=== PATIENT | female | born 1995 | race Caucasian/White ===

== ENCOUNTER 2018-07-10 10:11 | Inpatient (IN) | payer OTHER ==
[2018-07-15] MEDS: LACTATED RINGERS 1,000 ML IV SCH ×2 (06:18→11:02)
[2018-07-15] MEDS ORDERED: LIDOCAINE 1% (PF) 10 MG/ML (30 ML SDV) SQ PRN (06:22)
[2018-07-15] MEDS ORDERED: METHYLERGONOVINE 0.2 MG/ML 1 ML AMP IM PRN (06:22)
[2018-07-15] MEDS ORDERED: CARBOPROST TROMETHAMINE 250 MCG/ML 1 ML AMP IM PRN (06:22)
[2018-07-15] MEDS ORDERED: TERBUTALINE 1 MG/ML VIAL SQ PRN (06:22)
[2018-07-15] MEDS ORDERED: OXYTOCIN 10 UNIT/ML 1 ML VIAL IM PRN (06:22)
[2018-07-15 06:30] VITALS: BMI 30.4
[2018-07-15] MEDS ORDERED: OXYTOCIN 20 UNITS/1000 ML NS 1,000 ML IV SCH (06:30)
[2018-07-15] MEDS ORDERED: LACTATED RINGERS 1,000 ML IV SCH (06:30)
[2018-07-15 06:41] LABS: Basophils % (A) 0 %; Eosinophils # (A) 0.2 k/uL (0-0.7); Eosinophils % (A) 2 %; HCT 38.5 % (34.0-46.0); HGB 12.3 gm/dL (11.4-16.0); Lymphocytes # (A) 2.2 k/uL (1.0-4.8); Lymphocytes % (A) 20 %; MCH 30.1 pg (25.0-35.0); MCHC 31.9 g/dL (31.0-37.0); MCV 94.2 fL (80.0-100.0); Mean Platelet Volume 7.4; Monocytes # (A) 0.8 k/uL (0-1.0); Monocytes % (A) 8 %; Neutrophils # (A) 7.4 k/uL (1.3-7.7); Neutrophils % (A) 68 %; Platelet Count 156 k/uL (150-450); RBC 4.09 m/uL (3.80-5.40); RDW 12.7 % (11.5-15.5); WBC 10.8 k/uL (3.8-10.6)
--- NOTE | 2018-07-15 07:22 | P.HPOB ---
History of Present Illness H&P Date: 07/15/18 This is a 23-year-old white female 2 para 1001 EDC 07/10/2018 at 40-5/7 weeks' gestation. Patient presents today for induction for postdates with favorable cervix. Fetus is active, she denies vaginal bleeding or fluid leakage. Past medical history is significant for depression and ADHD. Past surgical history significant for primary for suspected macrosomia in 2014, lymph node removal of the right breast 3, benign pathology. Current medications vitamins daily. ALLERGIES morphine to which reports a nonspecific "intolerance". Family history is unremarkable. Social history patient is a former smoker, she is , she works locally, she denies social drug use or any alcohol use. Obstetric history is significant for blood type B positive, rubella status immune. VDRL testing, urine culture, hepatitis B surface antigen, HIV testing, gonorrhea and chlamydia cultures, group B strep cultures all negative. One- hour Glucola 74. On exam this is a pleasant white female, 5 foot 1 inch, 161 pounds, blood pressure 121/74, patient is afebrile. The general physical exam is within normal limits. The chest is clear in all [place]. Extremities reveal no edema. Cervix is 3 cm dilated, 70% effaced, -2 station, vertex presentation. Artificial amniorrhexis reveals meconium-stained fluid. heart rate is consistent with reactive NST. Impression: 40-5/7 weeks intrauterine , planning . Meconium- stained fluid. Favorable cervix. Plan: Continue oxytocin per hospital protocol. Continue close maternal and surveillance. Analgesic options are reviewed with the patient. Anticipating vaginal after . Review of Systems Constitutional: Reports as per HPI Past Medical History Past Medical History: No Reported History Additional Past Medical History / Comment(s): depression, ADHD History of Any Multi-Drug Resistant Organisms: None Reported Past Surgical History: Section Additional Past Surgical History / Comment(s): removal of 3 lymphangiomas Past Anesthesia/Blood Transfusion Reactions: Motion Sickness Past Psychological History: ADD/ADHD, Anxiety Smoking Status: Former smoker Past Alcohol Use History: None Reported Past Drug Use History: None Reported - Past Family History Mother Family Medical History: No Reported History Medications and Allergies Home Medications Medication Instructions Recorded Confirmed Type Pnv with Ca,No.72/Iron/FA 1 each PO DAILY 12/22/14 07/15/18 History [ Plus Multivitamin Tab] Allergies Allergy/AdvReac Type Severity Reaction Status Date / Time No Known Allergies Allergy Verified 07/15/18 06:23 Exam Vital Signs Temp Pulse Resp BP 07/15/18 06:24 96.5 F L 76 16 121/74 Intake and Output 07/14/18 07/15/18 07/15/18 22:59 06:59 14:59 Other: Weight 73.028 kg see dictation under HPI, please Results Result Diagrams: 07/15/18 06:18 Abnormal Lab Results - Last 24 Hours (Table) 07/15/18 Range/Units 06:18 WBC 10.8 H (3.8-10.6) k/uL Assessment and Plan Assessment: 40-5/7 weeks intrauterine , previous section planning , meconium-stained fluid. Plan: Oxytocin per hospital protocol. Close maternal and surveillance. Anticipating vaginal after . Time with Patient: Less than 30
[2018-07-15] MEDS ORDERED: ROPIVACAINE 100 MG, fentaNYL (PF) 200 MCG in SODIUM CHLORIDE 0.9% 76 ML EPIDURAL ONE (12:26)
[2018-07-15] MEDS ORDERED: ZOLPIDEM 5 MG TAB PO PRN (13:26)
[2018-07-15] MEDS ORDERED: HYDROCORTISONE 2.5% RECTAL CREAM 30 GM TUBE RECTAL PRN (13:26)
[2018-07-15] MEDS ORDERED: diphenhydrAMINE 25 MG CAP PO PRN (13:26)
[2018-07-15] MEDS ORDERED: IBUPROFEN 600 MG TAB PO PRN (13:26)
[2018-07-15] MEDS ORDERED: LANOLIN CREAM 5 GM TUBE TOPICAL PRN (13:26)
[2018-07-15] MEDS ORDERED: SIMETHICONE 80 MG CHEWABLE PO PRN (13:26)
[2018-07-15] MEDS ORDERED: diphenhydrAMINE ELIXIR 25 MG/10 ML CUP PO PRN (13:26)
[2018-07-15] MEDS ORDERED: HYDROcodone/APAP 5-325MG 1 EACH TAB PO PRN (13:26)
[2018-07-15] MEDS ORDERED: BISACODYL 10 MG SUPP RECTAL PRN (13:26)
[2018-07-15] MEDS ORDERED: diphenhydrAMINE 50 MG/ML 1 ML VIAL IVP PRN ×2 (13:26)
[2018-07-15] MEDS ORDERED: diphenhydrAMINE 50 MG CAP PO PRN (13:26)
[2018-07-15] MEDS ORDERED: WITCH HAZEL 1 EACH MED..PAD TOPICAL PRN (13:26)
[2018-07-15] MEDS ORDERED: BENZOCAINE/MENTHOL SPRAY 1 GM/SPRAY AEROSOL TOPICAL PRN (13:26)
--- NOTE | 2018-07-15 13:26 | P.PROBDLV ---
Vaginal Delivery Note - . Vaginal Delivery Note: This is a 23-year-old white female 2 para 1001 EDC 07/10/2018 at 40-5/7 weeks' gestation. Patient presented for induction this morning with favorable cervix for postdates. Artificial amniorrhexis revealed meconium-stained fluid. heart rate was reassuring throughout the first and second stages of labor. Patient had a previous section and is hoping for . Group B strep cultures negative. Blood type B+. Rubella status immune. Please see my dictated history and physical for details. Oxytocin was started and titrated per hospital protocol. Epidural was placed per her request. She progressed well through the first stage of labor was judged to be completely dilated at 1252 hrs. The perineal body was prepped and draped in usual sterile fashion. She pushed successfully in the infant's head delivered occiput anterior, and restituted accordingly. There was no nuchal cord noted. The right or anterior shoulder was delivered easily from underneath the pubic symphysis at which time the oropharynx, nasopharynx and external nares were all bulb suctioned on the perineal body. Patient was officially delivered of a liveborn female infant at 1308 hrs. Umbilical cord was doubly clamped and ligated, she was handed to waiting nurses for evaluation where scores of 9 and 9 at one and 5 minutes respectively were given. The placenta delivered spontaneously, it was inspected, noted to be intact with trivascular cord and very lightly meconium-stained at 1310 hours. The uterus is now massaged. Inspection of the cervix, vagina, perineum, periurethral areas revealed a small first-degree right labial minora laceration. This was repaired in the usual fashion for excellent reapproximation using 3-0 Vicryl suture. Fundus is firm and in the midline, symmetric and 18 week size upon completion of delivery. Total estimated blood loss 350 mL's. Infant weighs 7 pounds 6.5 ounces or 3360 g. The patient and her are allowed to begin the bonding experience in the LDR.
[2018-07-15] MEDS: SENNOSIDES-DOCUSATE SODIUM 1 EACH TAB PO SCH (20:00)
[2018-07-16] MEDS: ACETAMINOPHEN TAB 325 MG TAB PO PRN ×2 (05:20→08:32)
--- NOTE | 2018-07-16 07:33 | P.DS ---
Providers Date of admission: 07/15/18 05:52 Expected date of discharge: 07/16/18 Attending physician: Lia Campo Primary care physician: Stated None Hospital Course: This is a 23-year-old white female 2 para 1001 EDC 07/10/2018 at 40-5/7 weeks' gestation. Patient presented for induction for postdates with favorable cervix, plan was for secondary to previous section, low transverse incision. is otherwise unremarkable, rubella status immune , blood type B positive, group B strep cultures negative. Please see dictated history and physical for details. Patient was admitted, artificial amniorrhexis revealed meconium-stained fluid. Oxytocin was started and titrated per hospital protocol. Epidural was placed per her request. She went on to successfully deliver vaginally a liveborn female infant with scores of 9 and 9 at one and 5 minutes respectively. weighed 3360 g or 7 lbs. 6 oz. There was a small right labial minora laceration easily repaired, and an estimated blood loss of 350 mL's. Please see my dictated delivery note for details. This morning the patient and her baby are both looking well. The patient has voided, is ambulating, passing flatus, tolerating regular food. She has showered. Pain is minimal. Lochia rubra is minimal. Fundus is firm and in the midline, symmetric and 18 week size. [place] has been examined by the pollution control technician and is judged to be in good condition for discharge home. Patient will follow-up with me in the office in 6 weeks. She is in very good condition for discharge home this morning. I reminded her no intercourse, tampons or douching. She will use [id number] Motrin as needed for pain, 200 mg pills, 3 every 6 hours as needed. I've asked her to call me with any fevers shakes or chills, foul smelling or copious lochia, with the passage of large blood clots, with any pain not alleviated by ibuprofen, or any concerns. She will continue taking her vitamin daily. We have briefly reviewed options for contraception and we will discuss this further in the office. Patient Condition at Discharge: Good Plan - Discharge Summary Discharge Rx Participant: No New Discharge Prescriptions: No Action Pnv with Ca,No.72/Iron/FA [ Plus Multivitamin Tab] 1 each PO DAILY Discharge Medication List Pnv with Ca,No.72/Iron/FA [ Plus Multivitamin Tab] 1 each PO DAILY 12/22 [History] Discharge Disposition: HOME SELF-CARE
[2018-07-16] MEDS: SENNOSIDES-DOCUSATE SODIUM 1 EACH TAB PO SCH (08:32)
[2018-07-16 09:17] VITALS: BP 98/56; PULSE 70; RESP 18; TEMP 97.6
== END 2018-07-16 13:57 | disposition home or self-care (01) | DRG 775 ==
LOC: 4FBP 07-15 05:52
PROVIDERS: ADMIT Obstetrics & Gynecology; ATTEND Obstetrics & Gynecology
PROC: 10E0XZZ Delivery of Products of Conception, External Approach (ICD-10-PCS; principal; 2018-07-15)
PROC: 3E033VJ Introduction of Other Hormone into Peripheral Vein, Percutaneous Approach (ICD-10-PCS; 2018-07-15)
PROC: 10907ZC Drainage of Amniotic Fluid, Therapeutic from Products of Conception, Via Natural or Artificial Opening (ICD-10-PCS; 2018-07-15)
PROC: 0HQ9XZZ Repair Perineum Skin, External Approach (ICD-10-PCS; 2018-07-15)
PROC: 00HU33Z Insertion of Infusion Device into Spinal Canal, Percutaneous Approach (ICD-10-PCS; 2018-07-15)
PROC: 3E0R3BZ Introduction of Anesthetic Agent into Spinal Canal, Percutaneous Approach (ICD-10-PCS; 2018-07-15)
DX: O48.0 Post-term pregnancy (principal); O77.0 Labor and delivery complicated by meconium in amniotic fluid; O34.211 Maternal care for low transverse scar from previous cesarean delivery; O99.344 Other mental disorders complicating childbirth; F90.9 Attention-deficit hyperactivity disorder, unspecified type; F41.9 Anxiety disorder, unspecified; F32.9 Major depressive disorder, single episode, unspecified; O70.0 First degree perineal laceration during delivery; Z37.0 Single live birth; Z3A.40 40 weeks gestation of pregnancy; Z87.891 Personal history of nicotine dependence; Z88.5 Allergy status to narcotic agent
CPT/HCPCS: 85025

== ENCOUNTER 2022-06-19 05:52 | Inpatient (IN) | payer OTHER ==
[2022-06-19] MEDS ORDERED: TERBUTALINE 1 MG/ML VIAL SQ PRN (06:01)
[2022-06-19] MEDS ORDERED: OXYTOCIN 10 UNIT/ML 1 ML VIAL IM PRN (06:01)
[2022-06-19] MEDS ORDERED: METHYLERGONOVINE 0.2 MG/ML 1 ML AMP IM PRN (06:01)
[2022-06-19] MEDS ORDERED: CARBOPROST TROMETHAMINE 250 MCG/ML 1 ML AMP IM PRN (06:01)
[2022-06-19] MEDS ORDERED: LIDOCAINE 0.5% (PF) 5 MG/ML (50 ML SDV) SQ PRN (06:01)
[2022-06-19] MEDS: LACTATED RINGERS 1,000 ML IV SCH ×3 (06:10→13:37)
[2022-06-19] MEDS ORDERED: OXYTOCIN 30 UNITS/500 ML NS 30 UNIT in SALINE 1 500ML.BAG IV SCH (06:15)
[2022-06-19 06:20] LABS: Basophils % (A) 0 %; Eosinophils # (A) 0.1 k/uL (0-0.7); Eosinophils % (A) 1 %; HCT 36.1 % (34.0-46.0); HGB 11.5 gm/dL (11.4-16.0); Lymphocytes # (A) 2.1 k/uL (1.0-4.8); Lymphocytes % (A) 20 %; MCHC 31.9 g/dL (31.0-37.0); Mean Platelet Volume 8.1; Monocytes # (A) 0.8 k/uL (0-1.0); Monocytes % (A) 8 %; Neutrophils # (A) 7.2 k/uL (1.3-7.7); Neutrophils % (A) 69 %; Platelet Count 189 k/uL (150-450); RBC 3.97 m/uL (3.80-5.40); RDW 13.1 % (11.5-15.5); WBC 10.5 k/uL (3.8-10.6)
--- NOTE | 2022-06-19 07:53 | P.HPOB ---
History of Present Illness H&P Date: 06/19/22 Chief Complaint: Here for elective induction of labor This is a 27-year-old female 3 para 2002 EDC 06/22/2022 at 39-4/7 weeks' gestation. Patient presents today for elective induction of labor. Fetus is been active throughout the . Past medical history is significant for ADHD and depression. Past surgical history section 2014, successful VBACs to follow. Current medications vitamins daily. ALLERGIES morphine to which reports nausea. Family history is negative. Reproductive history 2014, successful 2018. Social history patient is , she is a former tobacco smoker, denies alcoholic and drug use. history blood type is B+, rubella status immune. VDRL testing, urine culture, hepatitis B surface antigen, HIV testing, group B strep cultures, gonorrhea and chlamydia cultures all negative. One-hour Glucola 135. On exam patient is 5 foot 1 inch, 157 pounds, blood pressure 121/79. General physical exam is within normal limits. Cervix is 3-4 cm dilated, 70% effaced, vertex presentation. heart rate is consistent with reactive NST. Impression: 39-4/7 weeks intrauterine , here for . All signs reassuring. Plan: Oxytocin has been started. We will proceed with artificial amniorrhexis. Continue close maternal and surveillance. Anticipate vaginal after section. Review of Systems Constitutional: Reports as per HPI Past Medical History Past Medical History: No Reported History Additional Past Medical History / Comment(s): depression, ADHD History of Any Multi-Drug Resistant Organisms: None Reported Past Surgical History: Section Additional Past Surgical History / Comment(s): removal of 3 lymphangiomas Past Anesthesia/Blood Transfusion Reactions: Motion Sickness Past Psychological History: ADD/ADHD, Anxiety Smoking Status: Never smoker Past Alcohol Use History: None Reported Past Drug Use History: None Reported - Past Family History Mother Family Medical History: No Reported History Medications and Allergies Home Medications Medication Instructions Recorded Confirmed Type No Known Home Medications 06/19/22 06/19/22 History Allergies Allergy/AdvReac Type Severity Reaction Status Date / Time No Known Allergies Allergy Verified 06/19/22 06:00 Exam Vital Signs Temp Pulse Resp BP Pulse Ox 06/19/22 06:00 97.6 F 96 16 121/74 99 Intake and Output 06/18/22 06/19/2206/19/22 22:59 06:59 14:59 Other: Weight 70.76 kg See dictation under HPI please Results Result Diagrams: 06/19/22 06:00 Assessment and Plan Assessment: 39-4/7 weeks intrauterine , here for induction of labor. All signs reassuring. Plan: We will proceed with artificial amniorrhexis. Oxytocin per protocol. Close maternal and surveillance. Anticipate vaginal after . Time with Patient: Less than 30
[2022-06-19] MEDS ORDERED: fentaNYL (PF) 50 MCG/ML 5 ML AMP ONE (10:25)
[2022-06-19] MEDS ORDERED: ROPIVACAINE 5 MG/ML 20 ML AMPULE ONE (10:25)
[2022-06-19] MEDS ORDERED: SODIUM CHLORIDE 0.9% 100 ML BAG ONE (10:25)
[2022-06-19] MEDS ORDERED: diphenhydrAMINE ELIXIR 25 MG/10 ML CUP PO PRN (15:15)
[2022-06-19] MEDS ORDERED: diphenhydrAMINE 50 MG/ML 1 ML VIAL IVP PRN ×2 (15:15)
[2022-06-19] MEDS ORDERED: BENZOCAINE/MENTHOL SPRAY 1 GM/SPRAY AEROSOL TOPICAL PRN (15:15)
[2022-06-19] MEDS ORDERED: HYDROCORTISONE 2.5% RECTAL CREAM 30 GM TUBE RECTAL PRN (15:15)
[2022-06-19] MEDS ORDERED: diphenhydrAMINE 25 MG CAP PO PRN (15:15)
[2022-06-19] MEDS ORDERED: ZOLPIDEM 5 MG TAB PO PRN (15:15)
[2022-06-19] MEDS ORDERED: LANOLIN CREAM 5 GM TUBE TOPICAL PRN (15:15)
[2022-06-19] MEDS ORDERED: SIMETHICONE 80 MG CHEWABLE PO PRN (15:15)
[2022-06-19] MEDS ORDERED: diphenhydrAMINE 50 MG CAP PO PRN (15:15)
[2022-06-19] MEDS ORDERED: ACETAMINOPHEN TAB 325 MG TAB PO PRN (15:15)
--- NOTE | 2022-06-19 15:15 | P.PROBDLV ---
Vaginal Delivery Note - . Vaginal Delivery Note: This is a 27-year-old female 3 para 2001 EDC 06/22/2022 at 39-4/7 weeks' gestation who presents for induction with favorable multiparous cervix. Fetus is been active throughout the . She has had a previous section, followed by a , and is planning . Please see my dictated history and physical for details. Artificial amniorrhexis revealed clear fluid. Epidural was started and titrated per patient request. Oxytocin also instituted per hospital protocol. She progressed well through the first stage of labor was judged to be completely dilated at 1429 hrs. and began the second stage of labor at that time. With excellent maternal expulsive efforts, position changes for occasional decelerations, good progress was made. The perineal body was prepped and draped in usual sterile fashion. 's head delivered occiput anterior and she restituted accordingly. There was a knuckle of umbilical cord presenting along with the head. The right or anterior shoulder was delivered easily from underneath the pubic symphysis at which time the oropharynx, nasopharynx, and external nares were all bulb suctioned on the perineal body. Patient was officially delivered of a liveborn female infant at 1501 hrs. Umbilical cord was doubly clamped and ligated, she was handed to waiting nurses for evaluation where scores of 8 and 9 at one and 5 minutes respectively were given. Placenta delivered spontaneously, it was inspected and noted to be intact with trivascular cord at 1504 hrs. At this time the uterus is massaged. Careful inspection of the cervix, vagina, perineum, periurethral, and perirectal areas revealed a small first-degree perineal laceration. This was easily repaired in the usual fashion with a [id number] suture with rapide. All sponge needle and enhancement counts are correct at the end of the procedure. Infant weighed 7 pounds 0.2 ounces or 3180 g. Patient and her are allowed to begin the bonding experience in the LDR.
[2022-06-19] MEDS: IBUPROFEN 600 MG TAB PO SCH ×2 (17:45→23:44)
[2022-06-19] MEDS: SENNOSIDES-DOCUSATE SODIUM 1 EACH TAB PO SCH (19:48)
[2022-06-20] MEDS: IBUPROFEN 600 MG TAB PO SCH ×2 (03:30→07:48)
[2022-06-20] MEDS: SENNOSIDES-DOCUSATE SODIUM 1 EACH TAB PO SCH (07:47)
[2022-06-20 08:10] VITALS: BP 92/60; PULSE 76; RESP 16; TEMP 97.4
--- NOTE | 2022-06-20 09:07 | P.DS ---
Providers Date of admission: 06/19/22 05:52 Expected date of discharge: 06/20/22 Attending physician: Lia Campo Primary care physician: Stated None Hospital Course: This is a 27-year-old female 3 para 2001 EDC 06/22/2022 at 39-4/7 weeks who presented for induction, planning , with favorable multiparous cervix. remarkable for blood type B positive, rubella status immune, group B strep cultures negative. Please see my dictated history and physical for details. Epidural was placed per her request. Oxytocin started and titrated per protocol. She went on to deliver vaginally a liveborn female with scores of 8 and 9 at one and 5 minutes respectively. Infant weighed 7 pounds or 3180 g. There was a small first-degree laceration easily repaired, estimated blood loss 300 mL's. Please see dictated delivery note for details. This morning the patient is doing well. She is voiding, and bleeding, passing flatus without difficulty. Vital signs are stable and she is afebrile. Fundus is firm and in the midline, symmetric and 18 week size. Extremities are negative for edema. [place] is doing well. Patient is judged to be in excellent condition for discharge home. She will follow-up with me in the office in 6 weeks. I have reminded her no intercourse, tampons or douching. She will use [id number] Advil or Aleve, or Motrin as needed for pain. She will call with any fevers shakes or chills, foul smelling or copious lochia, with the passage of large blood clots, with any pain not alleviated by cgri-[id number]-[id number] products, or indeed with any concerns. Assessment: Doing well first post day Patient Condition at Discharge: Good Plan - Discharge Summary New Discharge Prescriptions: No Action No Known Home Medications Discharge Medication List No Known Home Medications 06/19/22 [History] Follow up Appointment(s)/Referral(s): Lia Campo MD [STAFF PHYSICIAN] - 6 Weeks Discharge Disposition: HOME SELF-CARE
== END 2022-06-20 16:00 | disposition home or self-care (01) | DRG 807 ==
LOC: 4FBP 05:52
PROVIDERS: ADMIT Obstetrics & Gynecology; ATTEND Obstetrics & Gynecology
PROC: 10E0XZZ Delivery of Products of Conception, External Approach (ICD-10-PCS; principal; 2022-06-19)
PROC: 0HQ9XZZ Repair Perineum Skin, External Approach (ICD-10-PCS; 2022-06-19)
PROC: 10907ZC Drainage of Amniotic Fluid, Therapeutic from Products of Conception, Via Natural or Artificial Opening (ICD-10-PCS; 2022-06-19)
PROC: 3E033VJ Introduction of Other Hormone into Peripheral Vein, Percutaneous Approach (ICD-10-PCS; 2022-06-19)
PROC: 4A0HXCZ Measurement of Products of Conception, Cardiac Rate, External Approach (ICD-10-PCS; 2022-06-19)
DX: O34.211 Maternal care for low transverse scar from previous cesarean delivery (principal); Z37.0 Single live birth; O70.0 First degree perineal laceration during delivery; O69.89X0 Labor and delivery complicated by other cord complications, not applicable or unspecified; F41.9 Anxiety disorder, unspecified; F90.9 Attention-deficit hyperactivity disorder, unspecified type; O99.344 Other mental disorders complicating childbirth; Z3A.39 39 weeks gestation of pregnancy; Z87.891 Personal history of nicotine dependence; Z88.5 Allergy status to narcotic agent
CPT/HCPCS: 85025; 86850; 86900; 86901

== ENCOUNTER 2025-05-02 06:10 | Inpatient (IN) | payer OTHER ==
[2025-05-02] MEDS ORDERED: OXYTOCIN 10 UNIT/ML 1 ML VIAL IM PRN (06:36)
[2025-05-02] MEDS ORDERED: CARBOPROST TROMETHAMINE 250 MCG/ML 1 ML AMP IM PRN (06:36)
[2025-05-02] MEDS ORDERED: TRANEXAMIC 1,000 MG/100ML-NACL 1,000 MG in EMPTY BAG 1 BAG IV PRN (06:36)
[2025-05-02] MEDS ORDERED: TERBUTALINE 1 MG/ML VIAL SQ PRN (06:36)
[2025-05-02] MEDS ORDERED: METHYLERGONOVINE 0.2 MG/ML 1 ML AMP IM PRN (06:36)
[2025-05-02] MEDS ORDERED: LIDOCAINE 0.5% (PF) 5 MG/ML (50 ML SDV) SQ PRN (06:36)
[2025-05-02] MEDS: LACTATED RINGERS 1,000 ML IV SCH (06:42)
[2025-05-02] MEDS: OXYTOCIN 30 UNITS/500 ML NS 30 UNIT in SALINE 1 500ML.BAG IV SCH (06:46)
[2025-05-02 06:50] LABS: Basophils # (A) 0.03 10*3/uL (0.00-0.10); Basophils % (A) 0.3 %; Eosinophils # (A) 0.10 10*3/uL (0.04-0.35); Eosinophils % (A) 1.1 %; HCT 35.5 % (37.2-46.3); HGB 12.1 g/dL (12.0-15.0); Lymphocytes # (A) 2.18 10*3/uL (0.90-5.00); Lymphocytes % (A) 23.0 %; MCH 31.3 pg (27.0-32.0); MCHC 34.1 g/dL (32.0-37.0); MCV 92.0 fL (80.0-97.0); Monocytes # (A) 0.77 10*3/uL (0.20-1.00); Monocytes % (A) 8.1 %; Neutrophils # (A) 6.25 10*3/uL (1.80-7.70); Neutrophils % (A) 66.0 %; Platelet Count 146 10*3/uL (140-440); RBC 3.86 10*6/uL (4.10-5.20); RDW 13.8 % (11.5-14.5); WBC 9.47 10*3/uL (4.50-10.00)
--- NOTE | 2025-05-02 08:46 | P.HPOB ---
History of Present Illness H&P Date: 05/02/25 Chief Complaint: induction of labor Ms. Centeno is a 29 year old at 40 weeks and 2 days by LMP consistent with 1st trimester US who presents for induction of labor for post-dates. Her has been essentially uncomplicated. This will be a TOLAC, as the patient had a during her first delivery followed by 2 successful VBACs. The fetus is estimated to weigh in the 30%ile for weight based on a 32 week US. work-up: blood type B positive, antibody screen negative, rubella immune, VDRL non-reactive, HIV negative, HCV non-reactive, gonorrhea negative, chlamydia negative, 1 hour GTT wnl, GBS negative, s/p TDap. Past Medical History Past Medical History: No Reported History Additional Past Medical History / Comment(s): depression, ADHD History of Any Multi-Drug Resistant Organisms: None Reported Past Surgical History: Section Additional Past Surgical History / Comment(s): removal of 3 lymphangiomas Past Anesthesia/Blood Transfusion Reactions: Motion Sickness Past Psychological History: ADD/ADHD, Anxiety, Depression Smoking Status: Former smoker Past Alcohol Use History: None Reported Past Drug Use History: None Reported - Past Family History Mother Family Medical History: No Reported History Medications and Allergies Home Medications Medication Instructions Recorded Confirmed Type Bacillus Coagulans [Probiotic] 1 each PO DAILY 05/02/25 05/02/25 History FLUoxetine HCL [PROzac] 20 mg PO DAILY 05/02/25 05/02/25 History Ferrous Sulfate [Iron] 325 mg PO DAILY 05/02/25 05/02/25 History Allergies Allergy/AdvReac Type Severity Reaction Status Date / Time No Known Allergies Allergy Verified 05/02/25 06:31 Exam Vital Signs Temp Pulse Resp BP Pulse Ox 05/02/25 06:29 97.7 F 88 16 108/66 98 Intake and Output 05/01/25 05/02/25 05/02/25 22:59 06:59 14:59 Other: Weight 71.214 kg Focused physical exam is performed. This is a healthy-appearing in no apparent distress. Breathing is non-labored. Abdomen is gravid and non-tender. Cervical exam is 5/100/-2. AROM is undertaken with thick meconium noted. Extremities non-tender and non-edematous. heart tones are Category I and tocometer is graphing contractions every 2-4 minutes. Results Result Diagrams: 05/02/25 06:25 Abnormal Lab Results - Last 24 Hours (Table) 05/02/25 Range/Units 06:25 RBC 3.86 L (4.10-5.20) 10*6/uL Hct 35.5 L (37.2-46.3) % Immature Gran # 0.14 H (0.00-0.04) 10*3/uL Assessment and Plan Assessment: 29 year old at 40 weeks and 2 days presenting for induction of labor Plan: Admit, clear liquid diet, pitocin per protocol, continuous EFM and tocometer, anticipate vaginal delivery
[2025-05-02] MEDS ORDERED: fentaNYL (PF) 50 MCG/ML 5 ML AMP ONE (09:06)
[2025-05-02] MEDS ORDERED: ROPIVACAINE 5 MG/ML 30 ML VIAL ONE (09:06)
[2025-05-02] MEDS ORDERED: SODIUM CHLORIDE 0.9% 250 ML BAG ONE (09:06)
[2025-05-02] MEDS ORDERED: BENZOCAINE/MENTHOL SPRAY 1 GM/SPRAY AEROSOL TOPICAL PRN (12:00)
[2025-05-02] MEDS ORDERED: LANOLIN CREAM 1 GM TUBE TOPICAL PRN (12:00)
[2025-05-02] MEDS ORDERED: diphenhydrAMINE 25 MG CAP PO PRN (12:00)
[2025-05-02] MEDS ORDERED: HYDROCORTISONE 2.5% RECTAL CREAM 30 GM TUBE RECTAL PRN (12:00)
[2025-05-02] MEDS ORDERED: SIMETHICONE 80 MG CHEWABLE PO PRN (12:00)
[2025-05-02] MEDS ORDERED: diphenhydrAMINE 50 MG/ML 1 ML VIAL IVP PRN ×2 (12:00)
[2025-05-02] MEDS ORDERED: ZOLPIDEM 5 MG TAB PO PRN (12:00)
--- NOTE | 2025-05-02 12:00 | P.PROBDLV ---
Vaginal Delivery Note - . Vaginal Delivery Note: DATE OF SERVICE: 05/02/2025 PROCEDURE: Normal Vaginal Delivery ATTENDING: Dr. Vika Vargas MD ESTIMATED BLOOD LOSS: 200 mL FINDINGS: VFI, Apgars 8/9. Weight 6 pounds and 15 ounces (3145 grams) PROCEDURE: Ms. Centeno is a 29 year old at 40 weeks and 2 days presenting to labor and delivery for induction of labor. For further details, please review the admitting H&P. Epidural placed per patient request. The patient was completely dilated at 1126. A viable female was delivered over an intact perineum at 1145 after two pushes. The infant was placed on the maternal abdomen and bulb suctioned. The infant was noted to be spontaneously crying. Cord was clamped and cut after a 30-second delay. The infant was handed off to the pediatric team. Placenta was delivered whole with gentle cord traction at 1148. Oxytocin was started to facilitate uterine tone. Uterine fundus was found to be firm and below the umbilicus upon fundal massage. Thorough examination of the cervix, vagina, periurethral area, and perineum revealed no lacerations. The patient is stable and allowed to begin the bonding process.
[2025-05-02 13:32] VITALS: RESP 16
[2025-05-02] MEDS: IBUPROFEN 800 MG TAB PO SCH (15:51)
[2025-05-02] MEDS: ACETAMINOPHEN TAB 500 MG TAB PO SCH (20:07)
[2025-05-02] MEDS: SENNOSIDES-DOCUSATE SODIUM 1 EACH TAB PO SCH (20:08)
[2025-05-03 06:33] LABS: Basophils # (A) 0.03 10*3/uL (0.00-0.10); Basophils % (A) 0.2 %; Eosinophils # (A) 0.16 10*3/uL (0.04-0.35); Eosinophils % (A) 1.3 %; HCT 30.7 % (37.2-46.3); HGB 10.3 g/dL (12.0-15.0); Lymphocytes # (A) 2.65 10*3/uL (0.90-5.00); Lymphocytes % (A) 21.9 %; MCH 31.3 pg (27.0-32.0); MCHC 33.6 g/dL (32.0-37.0); MCV 93.3 fL (80.0-97.0); Monocytes # (A) 1.09 10*3/uL (0.20-1.00); Monocytes % (A) 9.0 %; Neutrophils # (A) 8.07 10*3/uL (1.80-7.70); Neutrophils % (A) 66.6 %; Platelet Count 116 10*3/uL (140-440); RBC 3.29 10*6/uL (4.10-5.20); RDW 13.9 % (11.5-14.5); WBC 12.12 10*3/uL (4.50-10.00)
[2025-05-03 08:10] VITALS: BP 99/60; PULSE 66; TEMP 97.9
--- NOTE | 2025-05-03 12:41 | P.DS ---
Providers Date of admission: 05/02/25 06:10 Expected date of discharge: 05/03/25 Attending physician: Vika Vargas MD Primary care physician: Stated None Hospital Course: Ms. Centeno is a 29 year old now PPD#1 s/p after elective induction of labor for post-dates at 40 weeks and 2 days. Delivery was uncomplicated, please reference the delivery note for details. The patient is doing well this morning and had no acute events overnight. She has no complaints this morning. She reports minimal lochia, passing flatus, voiding without difficulty, ambulating, and eating/drinking without nausea or vomiting. doing well at bedside, bottle feeding is going well. She denies chest pain, shortness of breathing, fevers, or chills overnight. She denies pain or swelling in the legs. restrictions are reviewed with the patient including pelvic rest for 6 weeks. The patient is encouraged to call the office if she experiences any heavy bleeding, foul-smelling discharge, breast complaints, or any if she has any other concerns. She will follow up in the office in 6 weeks for exam. All questions are answered. Patient Condition at Discharge: Good Plan - Discharge Summary New Discharge Prescriptions: No Action FLUoxetine HCL [PROzac] 20 mg PO DAILY Ferrous Sulfate [Iron] 325 mg PO DAILY Bacillus Coagulans [Probiotic] 1 each PO DAILY Discharge Medication List Bacillus Coagulans [Probiotic] 1 each PO DAILY 05/02/25 [History] FLUoxetine HCL [PROzac] 20 mg PO DAILY 05/02/25 [History] Ferrous Sulfate [Iron] 325 mg PO DAILY 05/02/25 [History] Follow up Appointment(s)/Referral(s): Vika Vargas MD [STAFF PHYSICIAN] - 06/20/25 9:30 am Activity/Diet/Wound Care/Special Instructions: Instructions 1. Do not begin any exercise program for 3 weeks. 2. Do not resume sexual relations for 6 weeks or longer if uncomfortable. 3. You may take tub baths or showers at any time. 4. You may use tampons if desired after 6 weeks. 5. Keep any areas repaired with stitches clean and dry. 6. If you are not nursing, wear a good fitting, supportive bra during the day and limit fluid intake for at least 1 week to prevent breast engorgement. 7. Call the office, , within the next week to make appointment for your 6 week checkup if it has not already been made. 8. Report any of the following occurrences to the doctor promptly: a. Heavy, excessive bleeding b. Chills, fever c. Burning or frequency of urination d. Pain or redness and breasts if nursing e. Increasing pain or swelling of vulva (stitches). In addition to the above instructions, the following additional should be followed: 1. No heavy lifting or straining (exercising) until after 6 week checkup. 2. Keep abdominal incision clean and dry: You may wear a dressing if more comfortable. 3. Make office appointment for 2 weeks after delivery date. Discharge Disposition: HOME SELF-CARE
== END 2025-05-03 13:05 | disposition home or self-care (01) | DRG 807 ==
LOC: 4FBP 06:10
PROVIDERS: ADMIT Obstetrics & Gynecology; ATTEND Obstetrics & Gynecology
PROC: 10E0XZZ Delivery of Products of Conception, External Approach (ICD-10-PCS; principal; 2025-05-02)
PROC: 3E033VJ Introduction of Other Hormone into Peripheral Vein, Percutaneous Approach (ICD-10-PCS; principal; 2025-05-02)
PROC: 10907ZC Drainage of Amniotic Fluid, Therapeutic from Products of Conception, Via Natural or Artificial Opening (ICD-10-PCS; principal; 2025-05-02)
DX: O48.0 Post-term pregnancy (principal); O99.344 Other mental disorders complicating childbirth; F32.A Depression, unspecified; O34.219 Maternal care for unspecified type scar from previous cesarean delivery; O77.0 Labor and delivery complicated by meconium in amniotic fluid; F90.9 Attention-deficit hyperactivity disorder, unspecified type; F41.9 Anxiety disorder, unspecified; Z87.891 Personal history of nicotine dependence; Z79.899 Other long term (current) drug therapy; Z3A.40 40 weeks gestation of pregnancy; Z37.0 Single live birth
CPT/HCPCS: 85025; 86850; 86900; 86901